=== PATIENT | female | born 1955 | race African-American/Black ===

== ENCOUNTER 2018-02-04 12:02 | Emergency (ER) | payer OTHER ==
[~2018-02-04] VITALS: Ht 160 cm; Wt 55.8 kg
[~2018-02-04 12:02] MED LIST: ATROVENT15 ML IH; AVELOX 400 MG400 MG PO; FLEXERIL PO; HAIR, SKIN & N1 EAC1 PO; HYDROCHLOROTHIA25 M1 PO; NICOTINE TRANSD21 M1 TD; PREDNISONE 20 M20 M1 PO; PREDNISONE 20 M20 MG PO; PREDNISONE 5 MG5 M1; PROAIR HFA8.5 GM IH; PROAIR HFA8.5 GM INH; ROBITUSSIN DM118 ML PO
[2018-02-04 12:41] LABS: HEMATOCRIT 43.2 % (37.0-47.0); HEMOGLOBIN 14.6 gm/dL (12.0-15.0); MCH 28.3 pg (26.0-34.0); MCHC 33.7 g/dL (28.0-37.0); RBC 5.14 mil/uL (4.20-5.00); WBC 7.7 thou/uL (4.0-11.0)
[2018-02-04 12:41] LABS: HCO3 21.8 mmol/L (22.0-26.0); PCO2 38.3 mmHg (35.0-45.0); PO2 66.3 mmHg (80.0-100.0); pH 7.374 (7.360-7.450); sO2 92.8 % (92.0-98.0)
[2018-02-04 12:49] LABS: ANION GAP 9 mmol/L (7-16); BUN 17 mg/dL (7-18); CALCIUM 9.4 mg/dL (8.5-10.1); CHLORIDE 105 mmol/L (98-107); CO2 28 mmol/L (21-32); CREATININE 0.7 mg/dL (0.6-1.0); GLUCOSE 116 mg/dL (74-106); POTASSIUM 3.4 mmol/L (3.5-5.1); SODIUM 142 mmol/L (136-145)
[2018-02-04 12:57] LABS: ALBUMIN 4.2 g/dL (3.4-5.0); SGOT 14 U/L (15-37); SGPT 30 U/L (30-65); TOTAL BILIRUBIN 0.3 mg/dL (<0.1-1.0); TOTAL PROTEIN 7.5 g/dL (6.4-8.2); TROPONIN-I <0.06 ng/mL (<0.06)
[2018-02-04] MEDS ORDERED: MEDROL DOSPAK21 TA1 PO (13:19)
[2018-02-04] MEDS ORDERED: DOXYCYCLINE 10100 MG PO (13:19)
[2018-02-04 14:05] VITALS: BP 147/89
--- NOTE | 2018-02-04 22:22 | EKG ---
[address] [address] ELECTROCARDIOGRAM REPORT Name: MARSHA CHARLES Room #: [facility]#: [id number] Admission: 02/04/18 Attend Phys: Discharge: 02/04/18 Date of : 55 Report #: [id number] THIS REPORT FOR: //name// [facility] ED Test Date: 2018-02-04 Test Time: 12:49:03 Pat Name: MARSHA CHARLES Department: Room: Gender: F Information Director: yeni : 1955 Requested By: Sneha Sampson Order Number: [id number] MD: Duong Israel Measurements Intervals [place] Rate: 84 P: 87 RI: 215 QRS: 84 QRSD: 93 T: 81 QT: 362 QTc: 428 Interpretive Statements Sinus rhythm Consider left atrial enlargement Borderline right axis deviation Compared to ECG 10/18/2017 22:15:49 ST (T wave) deviation no longer present Electronically Signed On 02-04-2018 22:22:02 [employer] by Duong Israel [email or web address] <ELECTRONICALLY SIGNED> By: Duong Israel MD 02/04/182221 1249 1249 Duong Israel MD /RAYNA
== END 2018-02-04 14:19 | disposition home or self-care (01) ==
LOC: ER 12:02
PROVIDERS: Physician Assistant
DX: J44.1 Chronic obstructive pulmonary disease with (acute) exacerbation (principal); I10 Essential (primary) hypertension; M19.90 Unspecified osteoarthritis, unspecified site; Z87.891 Personal history of nicotine dependence